=== PATIENT | male | born 1985 | race Caucasian/White ===

== ENCOUNTER 2017-02-07 09:15 | Emergency (ER) | payer OTHER ==
[2017-02-07] MEDS ORDERED: FENTANYL CITRATE INJ/PF 100 MCG/2 ML AMPUL IV ONE ×3 (09:24→10:34)
[2017-02-07] MEDS ORDERED: TETANUS/DIPHTHERIA TOX-ADULT 0.5 ML SYR (>=7YO) IM ONE (09:30)
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
[2017-02-07] MEDS ORDERED: HYDROMORPHONE HCL INJ/PF 2 MG/ML AMPULE IV ONE ×2 (11:11→11:53)
[2017-02-07 12:18] VITALS: BP 116/72
--- NOTE | 2017-02-15 02:59 | ER Document Report ---
Doctor's Note Notes: 02/15/17 02:59 Posterior long leg splint placed by the tech. Good pulses and perfusion distally.
== END 2017-02-07 12:15 | disposition short-term general hospital (02) ==
LOC: ER 09:15
PROC: 2W3LX1Z Immobilization of Right Lower Extremity using Splint (ICD-10-PCS; principal; 2017-02-07)
DX: S82.841A Displaced bimalleolar fracture of right lower leg, initial encounter for closed fracture (principal); S80.811A Abrasion, right lower leg, initial encounter; M79.604 Pain in right leg; V87.7XXA Person injured in collision between other specified motor vehicles (traffic), initial encounter
CPT/HCPCS: 96376; 99291; 99292; 90471; 96374; 96375; 71010; 73620; 73560; 72170; 73020; 73590; 70450; 71260; 72125; 74177; 90714; 29505; J3010; J1170

== ENCOUNTER → 2020-04-10 | Day surgery (SDC) | payer OTHER ==
[~2020-04-10] MED LIST: BUPIVACAINE HCL 0.5 % INJ/PF 30 ML SDV ONE; METHYLPREDNISOLONE ACETATE INJ 40 MG/1 ML ML ONE
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
== END ==
LOC: RAD 12:48
PROVIDERS: ATTEND Physician Assistant
DX: M25.571 Pain in right ankle and joints of right foot (principal); M19.171 Post-traumatic osteoarthritis, right ankle and foot
CPT/HCPCS: 20605; 77002; J3490; J1030